=== PATIENT | female | born 1970 | race Caucasian/White ===

== ENCOUNTER 2021-09-01 07:36 | Day surgery (SDC) | payer OTHER ==
[~2021-09-01] VITALS: Ht 172.7 cm; Wt 72.7 kg
--- NOTE | ~2021-09-01 | OR ---
[facility] [address], [place] [address] Draft DATE OF OPERATION: 09/01/2021 SURGEON: Stephen Blanca DO PROCEDURE PERFORMED: Laparoscopic right salpingo-oophorectomy, hysteroscopy and removal of retained and malpositioned intrauterine device. PREOPERATIVE DIAGNOSIS: Right ovarian cyst, malpositioned IUD. POSTOPERATIVE DIAGNOSIS: Right ovarian cyst, malpositioned IUD. PARTRIDGE FARMER: Nash Kasper MD COMPLICATIONS: None. BLOOD LOSS: 25 mL. FINDINGS: IUD removal: Significant resistance was encountered with initial IUD removal, when it did come out arm of IUD was noted to be absent. Hysteroscopy was performed with remaining arm embedded in the right endocervix, which was easily removed with hysteroscopic grasper under direct visualization, see procedure note. Laparoscopy: Normal-appearing uterus, left tube and ovary. Significantly enlarged right ovarian cystic mass without areas of normal ovarian tissue identified. Right tube distally adherent to the cystic ovarian mass. Normal-appearing appendix. No endometriosis noted within the pelvis or abdominal sidewalls. INDICATIONS: The patient is a 50-year-old female with complex right ovarian cyst and negative LEANNA serology. Imaging had also revealed a malpositioned IUD in the lower uterine segment. Risks, benefits, and alternatives to right ovarian cystectomy, possible oophorectomy and removal of malpositioned IUD were discussed with the patient and she elected to proceed. DESCRIPTION OF PROCEDURE: PATIENT NAME: OMAR SOLER OPERATIVE REPORT DATE OF : 72 REPORT #: [id number] PHYSICIAN: STEPHEN BLANCA DO PCP: ISA SARGENT DO REPORT IS CONFIDENTIAL AND NOT TO BE RELEASED WITHOUT AUTHORIZATION [facility] [address], [place] [address] Draft The patient was taken to the operating room where she was placed under general anesthesia and positioned in dorsal lithotomy. Speculum was placed in the vagina. IUD strings were grasped with ring forceps and resistance was encountered initially with attempts to withdraw the IUD. With repositioning the IUD and posterior , the IUD was removed, but upon inspection was noted to be missing one arm. Decision was made to proceed with hysteroscopic removal of retained malpositioned remnant of IUD. The patient was prepped and draped in a normal sterile fashion. Weighted speculum was placed in the vagina. Anterior lip of the cervix was grasped with an Allis clamp. Cervix was not easily dilated beyond the internal os as resistance was encountered and the correct tract was not easily palpable. Hysteroscope was introduced to the external os. Remaining instrumentation was removed except for the Allis clamp and using saline as a distending media cervix was dilated the rest of the way until the IUD arm was observed just distal to the endocervix or the endocervical os. Hysteroscopic grasper was inserted through the hysteroscope and used to grasp the IUD arm, which moved easily under direct visualization with removal of the hysteroscope. So it was inspected along with the remaining portion of the IUD and all components of the IUD were accounted for at that time. VCare manipulator was placed. Surgeon's gloves were changed and attention was then turned to the abdomen. Local anesthetic was injected vertically in the infraumbilical fold and vertical infraumbilical incision was made with a scalpel. This was carried down to the underlying layer of fascia with blunt and sharp dissection with Metzenbaum scissors. The fascia was grasped and elevated with hemostats and incised with Metzenbaum scissors and a stay suture on each of the left and right margins were placed with 0 Vicryl. Peritoneum was then entered bluntly and Thelma trocar was placed without difficulty. Additional right and left lateral assist ports were placed, each of 5 mm port under direct visualization after local infiltration with local anesthetic. The abdomen was insufflated with CO2 gas prior to this step, and the patient was placed in Trendelenburg positioning to further facilitate survey of the pelvis with findings as noted above. Due to the adherent nature of the tube to the ovary and absence of normal ovarian tissue, decision was made to perform right salpingo-oophorectomy to remove the intact cystic structure without spillage into the abdomen. Right tube was transected at the cornua with LigaSure device and mesosalpinx was cauterized and cut to allow better access to the utero-ovarian ligament, which was similarly cauterized and cut with LigaSure. This freed up the ovarian infundibulopelvic ligament sufficiently to cauterize and cut infundibulopelvic ligament with excellent direct visualization, placed an Endoloop around the ovarian artery with excellent hemostasis resulting. Peritoneum was then entered using the LigaSure device and dissected back to free the ovarian structure. Excellent visualization of the right ureter was maintained at all times. Once free, the large EndoCatch bag was introduced into the pelvis. with ovarian cyst was placed within the bag and brought out through the Thelma trocar. The bag was then brought up through the level of the incision where the cystic structure could be punctured with an 18-gauge needle and fluid withdrawn through a 30 mL syringe. Once the cyst could no longer be safely aspirated PATIENT NAME: OMAR SOLER OPERATIVE REPORT DATE OF : 72 REPORT #: [id number] PHYSICIAN: STEPHEN BLANCA DO PCP: ISA SARGENT DO REPORT IS CONFIDENTIAL AND NOT TO BE RELEASED WITHOUT AUTHORIZATION [facility] [address] [place] [id number] Draft due to collapse of the cystic structures, the cyst wall was brought up through the incision. Again, all well contained within the bag and an incision was made with Metzenbaum scissors, allowing entry of the suction credit risk management director into the cyst wall to further evacuate fluid. At this point, the cyst wall could be brought through the trocar site and was submitted to pathology along with fluid sample. Surgeon's gloves were changed. Suction credit risk management director tip was changed and attention was returned to the abdomen where excellent hemostasis was noted and pelvis was suction irrigated. All instrumentation was removed. Abdomen was desufflated and sponge and instrument counts were correct x2. The fascia was closed with 0 Vicryl in a running manner and skin was closed with 4-0 Monocryl. [place] manipulator was removed vaginally and the patient was taken to recovery in stable and satisfactory condition. DO ZAHRA Diaz/JAYCEL /[id number] Copies: ~ PATIENT NAME: OMAR SOLER OPERATIVE REPORT DATE OF : 72 REPORT #: [id number] PHYSICIAN: STEPHEN BLANCA DO PCP: ISA SARGENT DO REPORT IS CONFIDENTIAL AND NOT TO BE RELEASED WITHOUT AUTHORIZATION
[~2021-09-01 07:36] MED LIST: LEVOTHYROXINE88 MC1 PO
--- NOTE | 2021-09-01 13:57 | NUR ---
09/01/21 1357 Marta Moura 1351-PATIENT ARRIVED TO PACU ON 6L MASK RR EVEN. PATIENT NONAROUSABLE. SR IVF INFUSING. 3 LAP SITES TO ABDOMEN BANDAID CDI. [place] CATHTER TO GRAVITY DRAINING YELLOW URINE. 1356-PATIENT AROUSING TO VERBAL STIMULI EYES CLOSED. SHAKES HEAD NO TO PAIN OR NAUSEA. ORIENTED TO PACU. 6L MASK RR EVEN 100%
--- NOTE | 2021-09-01 14:29 | NUR ---
1420: PT RETURNS TO UNIT ROOM 12 VIA STRETCHER FROM PACU. ALERT AND AWAKE ON ARRIVAL. VSS, RESP EVEN AND UNLABORED ON RA. LAP SITES X3 C/D/I. SCDS IN PLACE. DENIES PAIN AND NAUSEA. ICE WATER AND CRACKERS PROVIDED. HOB ELEVATED AND POC DISCUSSED. PT AGREEABLE AT THIS TIME. DO JEANINE AT THE BEDSIDE DISCUSSING PROCEDURE WITH PT. NO NEEDS VOICED. CALL LIGHT WITHIN REACH
--- NOTE | 2021-09-01 15:24 | NUR ---
1520: PT AWAKE AND ALERT CONVERSING WITH SON. VSS, RESP EVEN AND UNLABORED. NO CHANGE TO LAP SITES FROM ARRIVAL. DENIES PAIN AND NAUSEA. [place] CATH REMOVED AND 200ML DRAINED. JELLO PROVIDED AT REQUEST. NO FURTHER NEEDS, CALL LIGHT WITHIN REACH
--- NOTE | 2021-09-01 16:41 | NUR ---
1600: PT WITH URGE TO VOID. DANGLES AT THE BEDSIDE, RUBIA WELL. DENIES DIZZINESS AND SOB. AMBULATES TO BR WITH STANDBY ASSIST FROM THIS RN. STEADY GAIT. SUCCESSFUL POSTOP VOID, 300ML. BACK TO ROOM 12. PREPARES FOR DC INDEPENDENTLY. 1625: SL REMOVED WITH CATH TIP INTACT AND PRESSURE APPLIED TO SITE, WNL. DC INSTRUCTIONS PROVIDED AND DISCUSSED ORDERED. PT VOICES UNDERSTANDING AND DENIES QUESTIONS AND CONCERNS AT THIS TIME. WHEELED OFF OF UNIT IN BY THIS RN. TRANSFERS INTO VEHICLE INDEPENDENTLY AND APPROPRIATELY. NO PHYSICAL SIGNS AND SYMPTOMS OF DISTRESS AT THIS TIME
== END 2021-09-01 16:25 | disposition home or self-care (01) ==
LOC: DS 07:36 → OPS 07:36 → DS 08:45 → OPS 09:00
PROVIDERS: ATTEND Obstetrics & Gynecology
PROC: 0UT04ZZ Resection of Right Ovary, Percutaneous Endoscopic Approach (ICD-10-PCS; principal; 2021-09-01 09:00)
PROC: 0UT54ZZ Resection of Right Fallopian Tube, Percutaneous Endoscopic Approach (ICD-10-PCS; 2021-09-01 09:00)
PROC: 0UPD8HZ Removal of Contraceptive Device from Uterus and Cervix, Via Natural or Artificial Opening Endoscopic (ICD-10-PCS; 2021-09-01 09:00)
DX: N83.201 Unspecified ovarian cyst, right side (principal); T83.32XA Displacement of intrauterine contraceptive device, initial encounter; E03.9 Hypothyroidism, unspecified; Z20.822 Contact with and (suspected) exposure to COVID-19; Y84.8 Other medical procedures as the cause of abnormal reaction of the patient, or of later complication, without mention of misadventure at the time of the procedure
CPT/HCPCS: J0131; J0330; J1100; J1885; J2001; J2250; J2405; J2704; J7121